=== PATIENT | female | born 1950 | race Caucasian/White ===

== ENCOUNTER 2019-01-16 07:34 | Inpatient (IN) | payer MEDICARE, OTHER ==
[2019-01-16] VITALS (22 sets, daily range): BP systolic 104–152; BP diastolic 54–88
[~2019-01-16] VITALS: Ht 149.9 cm; Wt 98.9 kg
[~2019-01-16 07:34] MED LIST: ACET-2708 PO; ASPI-1393 PO; CLOP75TA4 PO; FAMO-135 PO; GABA-531 PO; INSU100V3 SUBCUT; LIP40 PO; LOSA50TA41 PO; METO-539 PO; MULT-1146 PO; NEPVIT PO; NPH,100I SQ; OMEP40CA34 PO; RANO500T3 PO; SIMV40TA2 PO; [UNRECOGNIZED DRUG - OTHER] PO; zetia
[2019-01-16] MEDS ORDERED: KETOROLAC 30MG/ML VIAL IV ONE (09:00)
[2019-01-16] MEDS ORDERED: CLONIDINE 0.1MG TABLET PO PRN (10:00)
[2019-01-16] MEDS ORDERED: SODIUM CHLORIDE 0.45% 1,000 ML IV SCH (10:15)
[2019-01-16] MEDS ORDERED: LOSARTAN POTASSIUM 50 MG TABLET PO SCH (10:45)
[2019-01-16] MEDS ORDERED: ASPIRIN 81MG EC TABLET PO SCH ×2 (10:45→16:00)
[2019-01-16 10:48] LABS: BASOPHILS % 0.8 % (0.0-2.0); HEMATOCRIT. 37.4 % (36.0-48.0); HEMOGLOBIN. 12.4 g/dL (12.0-16.0); LYMPHOCYTES % 19.4 % (20.0-50.0); MEAN CORPUSCULAR HEMOGLOBIN 28.2 pg (28.0-32.0); MEAN CORPUSCULAR VOLUME 85.2 fL (81.0-99.0); MEAN PLATELET VOLUME 8.7 fl (7.4-10.4); MONOCYTES % 8.7 % (2.0-8.0); NEUTROPHILS % 64.1 % (40.0-76.0); PLATELET 287 x1000/uL (130-400); RED BLOOD CELL COUNT 4.39 mill/uL (4.2-5.4); RED CELL DISTRIBUTION WIDTH 15.3 % (11.6-14.6)
[2019-01-16 10:50] LABS: CHLORIDE 107 mEq/L (98-107)
[2019-01-16] MEDS ORDERED: FENTANYL CITRATE/PF 50MCG/ML 2ML VIAL ONE (12:26)
[2019-01-16] MEDS ORDERED: MIDAZOLAM HCL 2 MG/2 ML VIAL ONE (12:26)
[2019-01-16] MEDS ORDERED: IODIXANOL 320MG/ML 100 ML BOTTLE IV ONE ×3 (12:27→13:53)
[2019-01-16] MEDS ORDERED: LIDOCAINE HCL 1% 20ML VIAL (Pyxis) INJ ONE ×2 (12:27→13:00)
[2019-01-16] MEDS ORDERED: CLOPIDOGREL 75MG TABLET ONE (14:15)
[2019-01-16] MEDS ORDERED: MORPHINE SULFATE 2 MG/ML CPJ (NOT FOR IM USE) IV PRN (14:30)
[2019-01-16] MEDS ORDERED: SODIUM CHLORIDE 0.45% 1,000 ML IV ONE (14:30)
[2019-01-16] MEDS ORDERED: ATROPINE SULFATE 1MG/10ML SYR IV PRN (14:30)
[2019-01-16] MEDS ORDERED: ACETAMINOPHEN 325MG TABLET PO PRN (14:30)
[2019-01-16] MEDS ORDERED: HEPARIN SODIUM 1,000 UNIT/1ML VIAL IV ONE (14:48)
[2019-01-16] MEDS ORDERED: CLOPIDOGREL 75MG TABLET PO NR (16:00)
[2019-01-16] MEDS ORDERED: DEXTROSE 50% WATER 50ML SYRINGE IV PRN (17:00)
[2019-01-16] MEDS: INSULIN LISPRO 100 UNITS/ML SUBCUT SCH ×2 (17:20→22:43)
[2019-01-16] MEDS: BLOOD SUGAR DIAGNOSTIC STRIP TEST SCH ×2 (18:08→22:42)
[2019-01-16] MEDS: ONDANSETRON HCL 4MG/2ML INJ IV PRN ×2 (19:34→23:19)
[2019-01-16] MEDS ORDERED: ATORVASTATIN CALCIUM 20MG TABLET PO SCH (21:00)
[2019-01-16] MEDS: RANOLAZINE 500 MG TAB.SR.12H PO SCH (23:00)
[2019-01-16] MEDS: METOPROLOL TARTRATE 50MG TABLET PO SCH (23:00)
[2019-01-16] MEDS: MORPHINE SULFATE 2 MG/ML CPJ (NOT FOR IM USE) IV PRN (23:13)
[2019-01-17] VITALS (39 sets, daily range): BP systolic 92–143; BP diastolic 50–97
[2019-01-17] MEDS: BLOOD SUGAR DIAGNOSTIC STRIP TEST SCH ×3 (05:40→16:32)
[2019-01-17] MEDS: MORPHINE SULFATE 2 MG/ML CPJ (NOT FOR IM USE) IV PRN (06:52)
[2019-01-17] MEDS: ONDANSETRON HCL 4MG/2ML INJ IV PRN (06:52)
[2019-01-17 07:09] LABS: CHLORIDE 108 mEq/L (98-107)
[2019-01-17 07:15] LABS: BASOPHILS % 0.7 % (0.0-2.0); EOSINOPHILS % 7.4 % (0.0-5.0); HEMATOCRIT. 33.5 % (36.0-48.0); HEMOGLOBIN. 11.2 g/dL (12.0-16.0); LYMPHOCYTES % 21.3 % (20.0-50.0); MEAN CORPUSCULAR HEMOGLOBIN 28.7 pg (28.0-32.0); MEAN CORPUSCULAR VOLUME 85.7 fL (81.0-99.0); MEAN PLATELET VOLUME 8.7 fl (7.4-10.4); MONOCYTES % 11.1 % (2.0-8.0); NEUTROPHILS % 59.5 % (40.0-76.0); PLATELET 221 x1000/uL (130-400); RED BLOOD CELL COUNT 3.91 mill/uL (4.2-5.4); RED CELL DISTRIBUTION WIDTH 15.2 % (11.6-14.6)
[2019-01-17] MEDS: INSULIN LISPRO 100 UNITS/ML SUBCUT SCH ×3 (07:20→16:33)
[2019-01-17 07:32] LABS: CREATINE KINASE 46 IU/L (26-192)
[2019-01-17 07:37] LABS: CREATINE KINASE MB FRACTION < 1.0 ng/mL (0.5-3.6)
[2019-01-17] MEDS ORDERED: ASPIRIN 325MG TABLET PO SCH (09:00)
[2019-01-17] MEDS ORDERED: LOSARTAN POTASSIUM 50 MG TABLET PO SCH (09:00)
[2019-01-17] MEDS ORDERED: CLOPIDOGREL 75MG TABLET PO SCH ×2 (09:00)
[2019-01-17] MEDS: METOPROLOL TARTRATE 50MG TABLET PO SCH (09:21)
[2019-01-17] MEDS: RANOLAZINE 500 MG TAB.SR.12H PO SCH (09:22)
[2019-01-17] MEDS ORDERED: MORPHINE SULFATE 2 MG/ML CPJ (NOT FOR IM USE) IV ONE (11:15)
[2019-01-17] MEDS ORDERED: MORPHINE SULFATE 2 MG/ML CPJ (NOT FOR IM USE) IV NR (11:30)
[2019-01-17] MEDS ORDERED: MAGNESIUM 2 G PREMIX 50 ML IV SCH (12:00)
[2019-01-17] MEDS ORDERED: MAGNESIUM OXIDE 400MG TABLET PO SCH (13:30)
== END 2019-01-17 19:08 | disposition home or self-care (01) | DRG 246 ==
LOC: ER 07:34 → 3WST 11:12 → EDBEDREQ 11:20 → ENRESERV 12:52
PROVIDERS: ADMIT Internal Medicine; ATTEND Internal Medicine
PROC: 027136Z Dilation of Coronary Artery, Two Arteries with Three Drug-eluting Intraluminal Devices, Percutaneous Approach (ICD-10-PCS; principal; 2019-01-16)
PROC: 4A023N7 Measurement of Cardiac Sampling and Pressure, Left Heart, Percutaneous Approach (ICD-10-PCS; 2019-01-16)
PROC: B2111ZZ Fluoroscopy of Multiple Coronary Arteries using Low Osmolar Contrast (ICD-10-PCS; 2019-01-16)
PROC: B2181ZZ Fluoroscopy of Left Internal Mammary Bypass Graft using Low Osmolar Contrast (ICD-10-PCS; 2019-01-16)
DX: T82.855A Stenosis of coronary artery stent, initial encounter (principal); N18.6 End stage renal disease; I25.110 Atherosclerotic heart disease of native coronary artery with unstable angina pectoris; I13.2 Hypertensive heart and chronic kidney disease with heart failure and with stage 5 chronic kidney disease, or end stage renal disease; Z68.41 Body mass index [BMI] 40.0-44.9, adult; Z95.1 Presence of aortocoronary bypass graft; Z82.49 Family history of ischemic heart disease and other diseases of the circulatory system; E11.42 Type 2 diabetes mellitus with diabetic polyneuropathy; I50.9 Heart failure, unspecified; E11.22 Type 2 diabetes mellitus with diabetic chronic kidney disease; E66.9 Obesity, unspecified; E11.40 Type 2 diabetes mellitus with diabetic neuropathy, unspecified; K21.9 Gastro-esophageal reflux disease without esophagitis; E78.00 Pure hypercholesterolemia, unspecified; E78.5 Hyperlipidemia, unspecified; E83.42 Hypomagnesemia; I25.2 Old myocardial infarction; Z79.02 Long term (current) use of antithrombotics/antiplatelets; Z90.49 Acquired absence of other specified parts of digestive tract; Z98.84 Bariatric surgery status; Z88.1 Allergy status to other antibiotic agents; Z79.4 Long term (current) use of insulin; Y92.89 Other specified places as the place of occurrence of the external cause; Y83.1 Surgical operation with implant of artificial internal device as the cause of abnormal reaction of the patient, or of later complication, without mention of misadventure at the time of the procedure
CPT/HCPCS: 36415; 71045; 80048; 82550; 82553; 82962; 83036; 83735; 83880; 84443; 84484; 85347; 92928; 92929; 93005; 93306; 93459; 96374; 99285; C1725; C1726; C1769; C1874; C1887; C1893; J1644; J1815; J1885; J2250; J2270; J2405; J3010; J3475; J3490; J7040; Q9967

== ENCOUNTER 2019-06-19 09:17 | Inpatient (IN) | payer MEDICARE, OTHER ==
[2019-06-19] VITALS (7 sets, daily range): BP systolic 114–149; BP diastolic 60–76
[~2019-06-19] VITALS: Ht 152.4 cm; Wt 88.0 kg
[~2019-06-19 09:17] MED LIST changes: -ASPI-1393 PO; +ASPI-1497 PO; +OMEP40CA12 PO; -OMEP40CA34 PO
[2019-06-19] MEDS ORDERED: ZOCOR (10:12)
[2019-06-19] MEDS ORDERED: SODIUM CHLORIDE 0.45% 1,000 ML IV ONE (11:15)
[2019-06-19 11:57] LABS: CHLORIDE 107 mEq/L (98-107)
[2019-06-19 12:04] LABS: CLARITY URINE CLOUDY (CLEAR); COLOR URINE YELLOW (YELLOW); KETONES URINE NEGATIVE (NEGATIVE); LEUKOCYTE ESTERASE URINE 2+ (NEGATIVE); NITRITE URINE NEGATIVE (NEGATIVE); OCCULT BLOOD URINE NEGATIVE (NEGATIVE); PROTEIN URINE 1+ (NEGATIVE); SPECIFIC GRAVITY URINE 1.019 (1.005-1.030); UROBILINOGEN URINE 0.2 E.U./dL (0.2-1.0)
[2019-06-19 12:18] LABS: *AMPHETAMINES SCREEN URINE NEGATIVE (NEGATIVE); *BARBITURATES SCREEN URINE NEGATIVE (NEGATIVE); *BENZODIAZEPINES SCREEN URINE NEGATIVE (NEGATIVE); *COCAINE SCREEN URINE NEGATIVE (NEGATIVE); METHADONE URINE SCREEN NEGATIVE (NEGATIVE); OPIATES URINE SCREEN NEGATIVE (NEGATIVE)
[2019-06-19 12:19] LABS: CANNABINOID URINE SCREEN NEGATIVE (NEGATIVE); PHENCYCLIDINE URINE SCREEN NEGATIVE (NEGATIVE)
[2019-06-19] MEDS ORDERED: LIDOCAINE HCL 1% 20ML VIAL (Pyxis) INJ ONE ×2 (12:22→13:02)
[2019-06-19] MEDS ORDERED: IODIXANOL 320MG/ML 100 ML BOTTLE IV ONE (12:23)
[2019-06-19] MEDS ORDERED: FENTANYL CITRATE/PF 50MCG/ML 2ML VIAL ONE (12:26)
[2019-06-19] MEDS ORDERED: MIDAZOLAM HCL 2 MG/2 ML VIAL ONE (12:27)
[2019-06-19] MEDS ORDERED: ATROPINE SULFATE 1MG/10ML SYR IV PRN (13:30)
[2019-06-19] MEDS ORDERED: ONDANSETRON HCL 4MG/2ML INJ IV PRN (13:30)
[2019-06-19] MEDS ORDERED: ACETAMINOPHEN 325MG TABLET PO PRN (13:30)
[2019-06-19] MEDS ORDERED: GABAPENTIN 300MG CAPSULE PO PRN (14:45)
[2019-06-19] MEDS: MORPHINE SULFATE 2 MG/ML CPJ (NOT FOR IM USE) IV PRN ×2 (15:30→20:36)
[2019-06-19 15:48] LABS: BASOPHILS % 0.6 % (0.0-2.0); EOSINOPHILS % 4.2 % (0.0-5.0); HEMATOCRIT. 40.5 % (36.0-48.0); HEMOGLOBIN. 13.1 g/dL (12.0-16.0); LYMPHOCYTES % 24.1 % (20.0-50.0); MEAN CORPUSCULAR VOLUME 89.2 fL (81.0-99.0); MEAN PLATELET VOLUME 8.5 fl (7.4-10.4); MONOCYTES % 8.7 % (2.0-8.0); NEUTROPHILS % 62.4 % (40.0-76.0); PLATELET 263 x1000/uL (130-400); RED BLOOD CELL COUNT 4.54 mill/uL (4.2-5.4); RED CELL DISTRIBUTION WIDTH 13.4 % (11.6-14.6)
[2019-06-19] MEDS: FAMOTIDINE 20MG TABLET PO SCH (17:16)
[2019-06-19] MEDS: RANOLAZINE 500 MG TAB.SR.12H PO SCH (17:16)
[2019-06-19] MEDS ORDERED: DEXTROSE 50% WATER 50ML SYRINGE IV PRN (19:15)
[2019-06-19] MEDS: BLOOD SUGAR DIAGNOSTIC STRIP TEST SCH (20:31)
[2019-06-19] MEDS: INSULIN LISPRO 100 UNITS/ML SUBCUT SCH (20:32)
[2019-06-19] MEDS ORDERED: ATORVASTATIN CALCIUM 40MG TABLET PO SCH (21:00)
[2019-06-19] MEDS: METOPROLOL TARTRATE 50MG TABLET PO SCH (22:34)
[2019-06-20] VITALS (7 sets, daily range): BP systolic 108–134; BP diastolic 69–81
[2019-06-20] MEDS: BLOOD SUGAR DIAGNOSTIC STRIP TEST SCH (06:17)
[2019-06-20 06:42] LABS: BASOPHILS % 0.5 % (0.0-2.0); EOSINOPHILS % 5.5 % (0.0-5.0); HEMOGLOBIN. 12.6 g/dL (12.0-16.0); LYMPHOCYTES % 18.8 % (20.0-50.0); MEAN CORPUSCULAR HEMOGLOBIN 29.3 pg (28.0-32.0); MEAN CORPUSCULAR VOLUME 88.4 fL (81.0-99.0); MEAN PLATELET VOLUME 8.5 fl (7.4-10.4); NEUTROPHILS % 67.2 % (40.0-76.0); PLATELET 238 x1000/uL (130-400); RED BLOOD CELL COUNT 4.29 mill/uL (4.2-5.4); RED CELL DISTRIBUTION WIDTH 13.3 % (11.6-14.6)
[2019-06-20] MEDS: METOPROLOL TARTRATE 50MG TABLET PO SCH (06:52)
[2019-06-20 07:17] LABS: CHLORIDE 107 mEq/L (98-107)
[2019-06-20] MEDS: INSULIN LISPRO 100 UNITS/ML SUBCUT SCH (07:20)
[2019-06-20] MEDS: FAMOTIDINE 20MG TABLET PO SCH (08:32)
[2019-06-20] MEDS: RANOLAZINE 500 MG TAB.SR.12H PO SCH (08:32)
[2019-06-20] MEDS ORDERED: CLOPIDOGREL 75MG TABLET PO SCH (09:00)
[2019-06-20] MEDS ORDERED: MEDICATION NOT ON FORMULARY EA (Multivitamin (Multi Vitamin Daily) 1 TAB) PO SCH (09:00)
[2019-06-20] MEDS ORDERED: LOSARTAN POTASSIUM 50 MG TABLET PO SCH (09:00)
[2019-06-20] MEDS ORDERED: ASPIRIN 81MG EC TABLET PO SCH (09:00)
[2019-06-20] MEDS ORDERED: MULTIVITAMINS,THER W-MINERALS TABLET PO SCH (09:00)
== END 2019-06-20 10:37 | disposition home or self-care (01) | DRG 287 ==
LOC: ER 09:17 → CVICU 11:21 → ENRESERV 11:45 → 3WST 13:45
PROVIDERS: ADMIT Internal Medicine; ATTEND Internal Medicine
PROC: 4A023N7 Measurement of Cardiac Sampling and Pressure, Left Heart, Percutaneous Approach (ICD-10-PCS; principal; 2019-06-19)
PROC: B2111ZZ Fluoroscopy of Multiple Coronary Arteries using Low Osmolar Contrast (ICD-10-PCS; 2019-06-19)
PROC: B2131ZZ Fluoroscopy of Multiple Coronary Artery Bypass Grafts using Low Osmolar Contrast (ICD-10-PCS; 2019-06-19)
DX: I25.110 Atherosclerotic heart disease of native coronary artery with unstable angina pectoris (principal); E11.22 Type 2 diabetes mellitus with diabetic chronic kidney disease; E11.65 Type 2 diabetes mellitus with hyperglycemia; E78.00 Pure hypercholesterolemia, unspecified; E78.5 Hyperlipidemia, unspecified; I13.10 Hypertensive heart and chronic kidney disease without heart failure, with stage 1 through stage 4 chronic kidney disease, or unspecified chronic kidney disease; I25.82 Chronic total occlusion of coronary artery; N18.9 Chronic kidney disease, unspecified; I25.2 Old myocardial infarction; Z79.4 Long term (current) use of insulin; Z82.49 Family history of ischemic heart disease and other diseases of the circulatory system; Z88.5 Allergy status to narcotic agent; Z83.3 Family history of diabetes mellitus; Z95.1 Presence of aortocoronary bypass graft; Z95.5 Presence of coronary angioplasty implant and graft; Z98.84 Bariatric surgery status; B19.20 Unspecified viral hepatitis C without hepatic coma; Z88.1 Allergy status to other antibiotic agents; Z88.8 Allergy status to other drugs, medicaments and biological substances; Z79.899 Other long term (current) drug therapy; Z90.89 Acquired absence of other organs
CPT/HCPCS: 36415; 71045; 80048; 80053; 80305; 81003; 82962; 83036; 83880; 84484; 85025; 93005; 93306; 93459; C1760; C1769; C1887; C1893; J1644; J1815; J2250; J2270; J3010; J3490; Q9967

== ENCOUNTER 2022-06-02 14:17 | Inpatient (IN) | payer MEDICARE, MEDICAID ==
[~2022-06-02] VITALS: Ht 149.9 cm; Wt 95.9 kg
[~2022-06-02 14:17] MED LIST changes: -ACET-2708 PO; +CLOP-31 PO; -CLOP75TA4 PO; -GABA-531 PO; +GABA-532 PO; -LIP40 PO; -NEPVIT PO; -OMEP40CA12 PO; -[UNRECOGNIZED DRUG - OTHER] PO; -zetia
[2022-06-02] MEDS ORDERED: ASPIRIN 81MG TABLET PO ONE (22:15)
[2022-06-02] MEDS: NITROGLYCERIN 0.4MG TABLET SL SL PRN ×2 (22:26→22:27)
[2022-06-02] MEDS ORDERED: CLONIDINE 0.2MG TABLET PO ONE (22:45)
[2022-06-02 23:13] LABS: HEMATOCRIT. 41.1 % (36.0-48.0); HEMOGLOBIN. 13.7 g/dL (12.0-16.0); MEAN CORPUSCULAR HEMOGLOBIN 30.7 pg (28.0-32.0); MEAN CORPUSCULAR VOLUME 92.2 fL (81.0-99.0); MEAN PLATELET VOLUME 8.2 fl (7.4-10.4); PLATELET 282 x1000/uL (130-400); RED BLOOD CELL COUNT 4.46 mill/uL (4.2-5.4); RED CELL DISTRIBUTION WIDTH 14.1 % (11.6-14.6)
[2022-06-02 23:19] LABS: CHLORIDE 107 mEq/L (98-107)
[2022-06-02 23:31] LABS: PLATELET ESTIMATE NORMAL
[2022-06-03] MEDS ORDERED: DIPHENHYDRAMINE 25MG CAPSULE PO ONE
[2022-06-03 01:59] LABS: D-DIMER 0.46 mg/L FEU (<0.50); PARTIAL THROMBOPLASTIN TIME 27.6 sec (23.4-31.0); PROTHROMBIN TIME 10.4 sec (9.6-11.0)
[2022-06-03] MEDS ORDERED: ONDANSETRON HCL 4MG/2ML INJ IV PRN (08:00)
[2022-06-03] MEDS ORDERED: GUAIFENESIN 200MG/10ML SUGAR FREE UDC PO PRN (08:00)
[2022-06-03] MEDS ORDERED: ACETAMINOPHEN 325MG TABLET PO PRN ×2 (08:00)
[2022-06-03] MEDS ORDERED: CLONIDINE 0.1MG TABLET PO PRN (08:00)
[2022-06-03] MEDS ORDERED: MAGNESIUM/ALUMINUM HYDROXIDE/SIMETHICONE 30ML UDC PO PRN (08:00)
[2022-06-03] MEDS ORDERED: IPRATROPIUM/ALBUTEROL 0.5-3(2.5)MG/3ML NEB HHN PRN (08:00)
[2022-06-03] MEDS ORDERED: DOCUSATE SODIUM 100MG CAPSULE PO PRN (08:00)
[2022-06-03] MEDS ORDERED: ASPIRIN 325MG EC TABLET PO SCH (09:00)
[2022-06-03] MEDS ORDERED: INSULIN REGULAR 0.5UNIT/ML SYR(NEO) SUBCUT SCH (11:45)
[2022-06-03] MEDS: ASPIRIN 81MG EC TABLET PO SCH (12:00)
[2022-06-03] MEDS: CLOPIDOGREL 75MG TABLET PO SCH (12:00)
[2022-06-03] MEDS: RANOLAZINE 500 MG TAB.SR.12H PO SCH ×2 (12:00→20:07)
[2022-06-03] MEDS: FAMOTIDINE 20MG TABLET PO SCH ×2 (12:00→19:57)
[2022-06-03] MEDS ORDERED: ENOXAPARIN 40MG/0.4ML SYR SUBCUT SCH (12:45)
[2022-06-03] MEDS ORDERED: CALAMINE LOTION 120ML TOP PRN (13:30)
[2022-06-03] MEDS ORDERED: METOPROLOL TARTRATE 50MG TABLET PO SCH (14:00)
[2022-06-03] MEDS ORDERED: DEXTROSE 50% WATER 50ML SYRINGE IV PRN (14:00)
[2022-06-03] MEDS: BLOOD SUGAR DIAGNOSTIC STRIP TEST SCH ×3 (17:00→21:31)
[2022-06-03 17:31] VITALS: BP 169/81
[2022-06-03 17:33] VITALS: BP 169/81
[2022-06-03] MEDS: DIPHENHYDRAMINE 50MG/ML VIAL IM PRN (19:51)
[2022-06-03 20:00] VITALS: BP 152/73
[2022-06-03] MEDS: INSULIN REGULAR (HUMULIN R) 300UNITS/3ML VIAL SUBCUT SCH (20:03)
[2022-06-03] MEDS ORDERED: IPRATROPIUM BROMIDE (0.02%) 0.5MG/2.5ML NEB HHN PRN (20:15)
[2022-06-03] MEDS ORDERED: ALBUTEROL (0.083%) 2.5MG/3ML NEB HHN PRN (20:15)
[2022-06-03] MEDS ORDERED: IBUPROFEN 600MG TABLET PO PRN (23:38)
[2022-06-04] VITALS: BP 133/70
[2022-06-04 04:00] VITALS: BP 116/57
[2022-06-04] MEDS: RANOLAZINE 500 MG TAB.SR.12H PO SCH ×2 (05:26→21:16)
[2022-06-04] MEDS: BLOOD SUGAR DIAGNOSTIC STRIP TEST SCH ×4 (06:04→21:00)
[2022-06-04 07:26] LABS: HEMATOCRIT. 34.8 % (36.0-48.0); HEMOGLOBIN. 11.7 g/dL (12.0-16.0); MEAN CORPUSCULAR VOLUME 91.8 fL (81.0-99.0); MEAN PLATELET VOLUME 8.6 fl (7.4-10.4); PLATELET 219 x1000/uL (130-400); RED BLOOD CELL COUNT 3.79 mill/uL (4.2-5.4); RED CELL DISTRIBUTION WIDTH 13.6 % (11.6-14.6)
[2022-06-04 07:47] LABS: CHLORIDE 107 mEq/L (98-107)
[2022-06-04] MEDS: LOSARTAN POTASSIUM 50 MG TABLET PO SCH (08:54)
[2022-06-04] MEDS: ASPIRIN 81MG EC TABLET PO SCH (08:54)
[2022-06-04] MEDS: CLOPIDOGREL 75MG TABLET PO SCH (08:54)
[2022-06-04] MEDS: METOPROLOL TARTRATE 50MG TABLET PO SCH ×3 (08:55→21:20)
[2022-06-04] MEDS: FAMOTIDINE 20MG TABLET PO SCH (08:55)
[2022-06-04] MEDS: INSULIN REGULAR (HUMULIN R) 300UNITS/3ML VIAL SUBCUT SCH ×2 (09:00→21:00)
[2022-06-04] MEDS ORDERED: POTASSIUM CHLORIDE 20MEQ/PACKET PO SCH (09:00)
[2022-06-04 09:49] LABS: PLATELET ESTIMATE NORMAL
[2022-06-04] MEDS: DIPHENHYDRAMINE 50MG/ML VIAL IM PRN ×2 (11:40→21:18)
[2022-06-04 12:00] VITALS: BP 153/71
[2022-06-04] MEDS ORDERED: FURO20TA4 PO (14:57)
[2022-06-04 16:00] VITALS: BP 112/50
[2022-06-04 16:35] LABS: CLARITY URINE CLOUDY (CLEAR); COLOR URINE YELLOW (YELLOW); KETONES URINE NEGATIVE (NEGATIVE); LEUKOCYTE ESTERASE URINE 2+ (NEGATIVE); NITRITE URINE NEGATIVE (NEGATIVE); OCCULT BLOOD URINE NEGATIVE (NEGATIVE); PROTEIN URINE TRACE (NEGATIVE)
[2022-06-04 16:49] LABS: *AMPHETAMINES SCREEN URINE NEGATIVE (NEGATIVE); *BARBITURATES SCREEN URINE NEGATIVE (NEGATIVE); *BENZODIAZEPINES SCREEN URINE NEGATIVE (NEGATIVE); *COCAINE SCREEN URINE NEGATIVE (NEGATIVE); CANNABINOID URINE SCREEN NEGATIVE (NEGATIVE); METHADONE URINE SCREEN NEGATIVE (NEGATIVE); OPIATES URINE SCREEN NEGATIVE (NEGATIVE); PHENCYCLIDINE URINE SCREEN NEGATIVE (NEGATIVE)
[2022-06-04] MEDS ORDERED: ENOXAPARIN 30MG/0.3ML SYR SUBCUT SCH (17:00)
[2022-06-04] MEDS: AMMONIUM LACTATE 12% LOTION 240ML TOP SCH ×2 (17:00→18:35)
[2022-06-04] MEDS: FUROSEMIDE 20MG TABLET PO SCH (18:35)
[2022-06-04 20:00] VITALS: BP 107/44
[2022-06-05] VITALS: BP 94/48
[2022-06-05 04:00] VITALS: BP 101/45
[2022-06-05] MEDS: DIPHENHYDRAMINE 50MG/ML VIAL IM PRN ×2 (05:02→18:48)
[2022-06-05 06:56] LABS: HEMATOCRIT. 34.7 % (36.0-48.0); HEMOGLOBIN. 11.5 g/dL (12.0-16.0); MEAN CORPUSCULAR HEMOGLOBIN 30.4 pg (28.0-32.0); MEAN CORPUSCULAR VOLUME 92.2 fL (81.0-99.0); MEAN PLATELET VOLUME 8.7 fl (7.4-10.4); PLATELET 244 x1000/uL (130-400); RED BLOOD CELL COUNT 3.77 mill/uL (4.2-5.4); RED CELL DISTRIBUTION WIDTH 13.8 % (11.6-14.6)
[2022-06-05 07:10] LABS: CHLORIDE 110 mEq/L (98-107)
[2022-06-05 07:19] LABS: PHOSPHORUS 4.1 mg/dL (2.5-4.9)
[2022-06-05] MEDS: BLOOD SUGAR DIAGNOSTIC STRIP TEST SCH ×4 (07:40→21:00)
[2022-06-05 08:00] VITALS: BP 148/78
[2022-06-05] MEDS ORDERED: REGADENOSON 0.4 MG/5 ML IV NR (08:00)
[2022-06-05] MEDS: FAMOTIDINE 20MG TABLET PO SCH (09:00)
[2022-06-05] MEDS: LOSARTAN POTASSIUM 50 MG TABLET PO SCH (09:00)
[2022-06-05] MEDS: FUROSEMIDE 20MG TABLET PO SCH ×2 (09:00→18:20)
[2022-06-05] MEDS: INSULIN REGULAR (HUMULIN R) 300UNITS/3ML VIAL SUBCUT SCH ×2 (09:00→18:43)
[2022-06-05] MEDS: ASPIRIN 81MG EC TABLET PO SCH (09:00)
[2022-06-05] MEDS: METOPROLOL TARTRATE 50MG TABLET PO SCH ×2 (09:00→21:43)
[2022-06-05] MEDS: CLOPIDOGREL 75MG TABLET PO SCH (09:00)
[2022-06-05] MEDS: RANOLAZINE 500 MG TAB.SR.12H PO SCH ×2 (09:00→21:43)
[2022-06-05 10:14] LABS: T4 FREE 1.09 ng/dL (0.76-1.46)
[2022-06-05] MEDS ORDERED: TRAMADOL 50MG TABLET PO PRN (11:30)
[2022-06-05] MEDS ORDERED: NALOXONE HCL 0.4MG/ML VIAL IV PRN (11:45)
[2022-06-05 12:00] VITALS: BP 115/55
[2022-06-05] MEDS: METHYLPREDNISOLONE 4MG TABLET PO SCH (13:30)
[2022-06-05] MEDS ORDERED: NITROGLYCERIN 0.4MG TABLET SL SL ONE (14:59)
[2022-06-05] MEDS ORDERED: SODIUM CHLORIDE 0.45% 1,000 ML IV SCH (15:00)
[2022-06-05 16:00] VITALS: BP 122/53
[2022-06-05] MEDS ORDERED: ENOXAPARIN 40MG/0.4ML SYR SUBCUT SCH (17:00)
[2022-06-05] MEDS: NITROGLYCERIN 0.4MG TABLET SL SL PRN ×2 (18:15→23:53)
[2022-06-05] MEDS: AMMONIUM LACTATE 12% LOTION 240ML TOP SCH ×2 (18:37→18:50)
[2022-06-05 20:00] VITALS: BP 136/87
[2022-06-05 21:09] LABS: PLATELET ESTIMATE NORMAL
[2022-06-06] VITALS: BP 134/57
[2022-06-06] MEDS: DIPHENHYDRAMINE 50MG/ML VIAL IM PRN (01:20)
[2022-06-06 01:21] LABS: CREATINE KINASE 162 IU/L (26-192); CREATINE KINASE MB FRACTION < 1.0 ng/mL (0.5-3.6)
[2022-06-06 04:00] VITALS: BP 136/56
[2022-06-06] MEDS: BLOOD SUGAR DIAGNOSTIC STRIP TEST SCH (07:40)
[2022-06-06 07:45] LABS: BASOPHILS % 0.6 % (0.0-2.0); EOSINOPHILS % 5.7 % (0.0-5.0); HEMATOCRIT. 36.8 % (36.0-48.0); HEMOGLOBIN. 12.4 g/dL (12.0-16.0); MEAN CORPUSCULAR VOLUME 92.5 fL (81.0-99.0); MEAN PLATELET VOLUME 8.4 fl (7.4-10.4); MONOCYTES % 13.6 % (2.0-8.0); NEUTROPHILS % 57.1 % (40.0-76.0); PLATELET 250 x1000/uL (130-400); RED BLOOD CELL COUNT 3.98 mill/uL (4.2-5.4)
[2022-06-06 08:00] VITALS: BP 113/48
[2022-06-06 08:15] LABS: CHLORIDE 105 mEq/L (98-107)
[2022-06-06] MEDS ORDERED: METH4TAB PO ×2 (08:19→08:24)
[2022-06-06] MEDS ORDERED: MUPI1OIN4 TP ×2 (08:20→08:24)
[2022-06-06 08:24] LABS: FERRITIN 29 ng/mL (10-291)
[2022-06-06 08:27] LABS: CREATINE KINASE 128 IU/L (26-192); CREATINE KINASE MB FRACTION < 1.0 ng/mL (0.5-3.6); TOTAL IRON BINDING CAPACITY 294 ug/dL (250-450)
[2022-06-06 08:36] LABS: VITAMIN B12 SERUM 1905 pg/mL (211-911)
[2022-06-06] MEDS: INSULIN REGULAR (HUMULIN R) 300UNITS/3ML VIAL SUBCUT SCH (09:00)
[2022-06-06] MEDS: LOSARTAN POTASSIUM 50 MG TABLET PO SCH (09:00)
[2022-06-06] MEDS: FUROSEMIDE 20MG TABLET PO SCH (09:00)
[2022-06-06] MEDS: METHYLPREDNISOLONE 4MG TABLET PO SCH (09:00)
[2022-06-06] MEDS: ASPIRIN 81MG EC TABLET PO SCH (09:00)
[2022-06-06] MEDS: CLOPIDOGREL 75MG TABLET PO SCH (09:00)
[2022-06-06] MEDS: AMMONIUM LACTATE 12% LOTION 240ML TOP SCH (09:00)
[2022-06-06] MEDS: RANOLAZINE 500 MG TAB.SR.12H PO SCH (09:00)
[2022-06-06] MEDS: FAMOTIDINE 20MG TABLET PO SCH (09:00)
[2022-06-06] MEDS: METOPROLOL TARTRATE 50MG TABLET PO SCH (09:00)
[2022-06-06 09:35] LABS: FOLIC ACID (FOLATE) SERUM > 20.00 ng/mL (>5.38)
[2022-06-06 10:20] VITALS: BP 113/48
== END 2022-06-06 13:03 | disposition home or self-care (01) | DRG 291 ==
LOC: ER 14:17 → EDBEDREQTM 06-03 02:10 → EDBEDREQ 06-03 02:10 → ENRESERV 06-03 13:58 → 7WST 06-03 17:15
PROVIDERS: ADMIT Internal Medicine; ATTEND Internal Medicine
DX: I13.0 Hypertensive heart and chronic kidney disease with heart failure and stage 1 through stage 4 chronic kidney disease, or unspecified chronic kidney disease (principal); I50.33 Acute on chronic diastolic (congestive) heart failure; N17.0 Acute kidney failure with tubular necrosis; I16.9 Hypertensive crisis, unspecified; E11.22 Type 2 diabetes mellitus with diabetic chronic kidney disease; E78.00 Pure hypercholesterolemia, unspecified; N18.9 Chronic kidney disease, unspecified; I25.10 Atherosclerotic heart disease of native coronary artery without angina pectoris; E87.6 Hypokalemia; L29.9 Pruritus, unspecified; E78.5 Hyperlipidemia, unspecified; D72.10 Eosinophilia, unspecified; E86.0 Dehydration; D63.1 Anemia in chronic kidney disease; K21.9 Gastro-esophageal reflux disease without esophagitis; Z79.02 Long term (current) use of antithrombotics/antiplatelets; Z95.1 Presence of aortocoronary bypass graft; Z79.4 Long term (current) use of insulin; Z79.82 Long term (current) use of aspirin; Z79.899 Other long term (current) drug therapy; Z88.1 Allergy status to other antibiotic agents; Z88.2 Allergy status to sulfonamides; Z88.8 Allergy status to other drugs, medicaments and biological substances; Z98.61 Coronary angioplasty status; Z98.84 Bariatric surgery status; Z83.3 Family history of diabetes mellitus; Z82.49 Family history of ischemic heart disease and other diseases of the circulatory system
CPT/HCPCS: 36415; 71045; 76770; 78452; 80053; 80061; 80305; 81003; 82550; 82553; 82570; 82607; 82728; 82746; 82962; 83036; 83516; 83540; 83550; 83735; 83880; 83935; 84100; 84300; 84439; 84443; 84484; 85025; 85379; 93005; 93017; 93306; 93970; 93971; 99285; A9500; C1893; J1200; J1650; J1815; J2785; J7509; Q0163